=== PATIENT | male | born 1970 | race Asian ===

== ENCOUNTER 2022-12-05 05:40 | Day surgery (SDC) | payer OTHER ==
[2022-12-03 10:05] VITALS: BMI 25.7
[2022-12-05] MEDS ORDERED: Lidocaine 0.5%/Epinephrine 1:200,000 50 ml Vial ONE (06:31)
[2022-12-05] MEDS ORDERED: EPINEPHrine 1 MG/ML VIAL ONE (06:33)
[2022-12-05] MEDS ORDERED: Bupivacaine PF 0.5% 30 ML VIAL ONE (06:34)
[2022-12-05] MEDS ORDERED: Ondansetron PF 4 MG/2 ML Vial ONE (07:00)
[2022-12-05] MEDS ORDERED: Dexamethasone 4 mg/ml Vial ONE ×2 (07:00→07:42)
[2022-12-05] MEDS ORDERED: Lidocaine 1% PF 5 ML VIAL ONE (07:00)
[2022-12-05] MEDS ORDERED: fentaNYL 50 mcg/mL 1 mL Vial ONE (07:00)
[2022-12-05] MEDS ORDERED: PROPOFOL 20 ML ONE ×2 (07:00→07:27)
[2022-12-05] MEDS ORDERED: Ketorolac Tromethamine 30 MG/ML VIAL ONE (07:01)
[2022-12-05] MEDS ORDERED: CEFAZOLIN 2 GM VIAL ONE (07:16)
== END 2022-12-05 10:10 | disposition home or self-care (01) ==
LOC: CSHSDC 05:40
PROVIDERS: ATTEND Orthopaedic Surgery Sports Medicine
PROC: 0RBL4ZZ Excision of Right Elbow Joint, Percutaneous Endoscopic Approach (ICD-10-PCS; principal; 2022-12-05)
DX: M19.021 Primary osteoarthritis, right elbow (principal); M24.521 Contracture, right elbow
CPT/HCPCS: J0171; J1100; J1885; J2001; J2405; J2704; J3010; S0020